=== PATIENT | female | born 1965 | race Caucasian/White ===

== ENCOUNTER → 2020-05-01 16:29 | Outpatient (CLI) | payer OTHER ==
[~2020-05-01 16:29] MED LIST: [UNRECOGNIZED DRUG - OTHER]
== END | disposition home or self-care (01) ==
LOC: LAB 16:29
PROVIDERS: ATTEND Urology
DX: N30.00 Acute cystitis without hematuria (principal)

== ENCOUNTER 2020-05-22 08:54 | Outpatient (CLI) | payer OTHER | END 2020-05-22 09:35 | disposition home or self-care (01) | LOC: LAB 08:54 | PROVIDERS: ATTEND Urology | DX: N30.00 Acute cystitis without hematuria (principal) ==

== ENCOUNTER 2020-12-19 19:19 | Emergency (ER) | payer OTHER ==
[~2020-12-19] VITALS: Ht 162.6 cm; Wt 77.1 kg
== END 2020-12-19 22:13 | disposition home or self-care (01) ==
LOC: ER 19:19
DX: M79.601 Pain in right arm (principal); M54.9 Dorsalgia, unspecified